=== PATIENT | female | born 1990 | race Caucasian/White ===

== ENCOUNTER 2018-12-03 15:40 | Emergency (ER) | payer OTHER, BC ==
[2018-12-03] MEDS ORDERED: PROMETHAZINE 25 MG/ML VIAL ONE (16:08)
[2018-12-03 16:09] LABS: Absolute Lymphocytes (CBC) 1.5 K/uL (0.7-4.9); Basophils % 0.4 % (0-1.3); Hematocrit 37.8 % (36.0-45.0); MPV 9.1 fL (7.6-11.3); RBC Red Blood Cell Count 4.11 M/uL (3.86-4.86)
[2018-12-03] MEDS ORDERED: NA CHLORIDE 0.9% 1,000 ML ONE (16:09)
[2018-12-03 16:21] LABS: BUN Blood Urea Nitrogen 7 mg/dL (7-18); Bicarbonate 20 mmol/L (21-32); Glucose Level 94 mg/dL (74-106); Potassium 3.8 mmol/L (3.5-5.1); Sodium Level 136 mmol/L (136-145)
--- NOTE | 2018-12-03 17:09 | ER ---
Nurse's Notes [facility] Name: Em Garvin Age: 27 yrs Sex: Female : 1990 Arrival Date: 12/03/2018 Time: 15:41 Bed 6 Private MD: Diagnosis: Vomiting of , unspecified Presentation: 12/03 15:47 Presenting complaint: Patient states: I have been having N/V the whole , I was la1 taking zofran but I ran out about 4 days ago, for the last 2 days I have not been able to keep even water down. Transition of care: patient was not received from another setting of care. Onset of symptoms was December 03, 2018. Risk Assessment: Do you want to hurt yourself or someone else? Patient reports no desire to harm self or others. Initial Sepsis Screen: Does the patient meet any 2 criteria? No. Patient's initial sepsis screen is negative. Does the patient have a suspected source of infection? No. Patient's initial sepsis screen is negative. Care prior to arrival: None. 15:47 Method Of Arrival: Ambulatory la1 15:47 Acuity: MELVIN 3 la1 Triage Assessment: 16:00 General: Appears in no apparent distress. comfortable, Behavior is cooperative, ae4 appropriate for age, anxious. Pain: Denies pain. EENT: No deficits noted. Neuro: No deficits noted. Cardiovascular: No deficits noted. Respiratory: No deficits noted. GI: Reports nausea, vomiting. : No signs and/or symptoms were reported regarding the genitourinary system. Derm: No deficits noted. Musculoskeletal: No deficits noted. 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 - Social history:: Smoking status: Patient/guardian denies using tobacco. - Ebola Screening: : No symptoms or risks identified at this time. Screenin:16 Abuse screen: Denies threats or abuse. Denies injuries from another. Nutritional ae4 screening: No deficits noted. Tuberculosis screening: No symptoms or risk factors identified. Fall Risk None identified. Assessment: 16:00 General: SEE TRIAGE NOTE. Pain: Denies pain. GI: Abdomen is non-distended, Reports ae4 nausea, vomiting. 17:17 Reassessment: PT D/C HOME AMBULATORY WITH FAMILY, DX WITH MORNING SICKNESS. bp Vital Signs: 15:46 BP 123 / 90; Pulse 97; Resp 16; Temp 97.4; Pulse Ox 98% on R/A; Weight 63.5 kg; Height la1 5 ft. 1 in. (154.94 cm); 16:55 BP 101 / 69; Pulse 84; Resp 16; Pulse Ox 100% ; ae4 17:15 BP 105 / 67; Pulse 87; Resp 16; Temp 97.5; Pulse Ox 100% ; bp 15:46 Body Mass Index 26.45 (63.50 kg, 154.94 cm) la1 Vitals: 17:15 Heart Tones 150. bp ED Course: 15:41 Patient arrived in ED. as 15:42 Sarah Hernandez FNP-C is [facility]. kb 15:42 Edgar Bonner MD is Attending Physician. kb 15:47 Arm band placed on left wrist. la1 15:48 Triage completed. la1 15:49 Ras Acosta, RN is Primary Nurse. bp 16:00 Inserted saline lock: 20 gauge in right antecubital area, using aseptic technique. ae4 Blood collected. 16:16 Patient has correct armband on for positive identification. Bed in low position. Call ae4 light in reach. Side rails up X2. Adult w/ patient. 17:16 No provider procedures requiring assistance completed. IV discontinued, intact, bp bleeding controlled, No redness/swelling at site. Pressure dressing applied. Administered Medications: 16:00 Drug: NS 0.9% 1000 ml Route: IV; Rate: 1000 ml; Site: right antecubital; ae4 17:13 Follow up: IV Status: Completed infusion; IV Intake: 1000ml ae4 16:00 Drug: Phenergan 12.5 mg Route: IVP; Site: right antecubital; ae4 16:51 Follow up: Response: No adverse reaction ae4 Intake: 17:13 IV: 1000ml; Total: 1000ml. ae4 Outcome: 17:09 Discharge ordered by . kb 17:17 Discharged to home ambulatory, with family. bp 17:17 Condition: stable 17:17 Discharge instructions given to patient, Instructed on discharge instructions, follow up and referral plans. medication usage, Demonstrated understanding of instructions, follow-up care, medications, Prescriptions given X 1. 17:27 Patient left the ED. bp Signatures: Sarah Hernandez, RESOURCE DEVELOPMENT DIRECTOR-C RESOURCE DEVELOPMENT DIRECTOR-Bere Washington Lee, RN RN la1 Ras Acosta RN RN bp Armen Oquendo RN RN ae4
--- NOTE | 2018-12-03 17:10 | EDPHYS ---
Physician Documentation [facility] Name: Em Garvin Age: 27 yrs Sex: Female : 1990 Arrival Date: 12/03/2018 Time: 15:41 Bed 6 Private MD: ED Physician Edgar Bonner HPI: 12/03 17:05 This 27 yrs old Female presents to ER via Ambulatory with complaints of kb Vomiting - 18 wks preg. 17:07 The patient presents to the emergency department with nausea and vomiting. kb course: care: private OB physician, Leakage of Fluid: none appreciated, Ultrasound: the patient had an ultrasound, Risk/complications: no obvious risks or complications are appreciated. Previous pregnancies: the patient has never been . Associated signs and symptoms: Pertinent positives: nausea, vomiting, Pertinent negatives: abdominal pain, chest pain, diarrhea, dysuria, fever, frequency, ruptured membranes, seizure, shortness of breath, vaginal bleeding, vaginal discharge. The patient has not experienced similar symptoms in the past. The patient has not recently seen a physician. 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 - Social history:: Smoking status: Patient/guardian denies using tobacco. - Ebola Screening: : No symptoms or risks identified at this time. ROS: 17:02 Constitutional: Negative for fever, chills, and weight loss, ENT: Negative for injury, kb pain, and discharge, Neck: Negative for injury, pain, and swelling, Cardiovascular: Negative for chest pain, palpitations, and edema, Respiratory: Negative for shortness of breath, cough, wheezing, and pleuritic chest pain, Back: Negative for injury and pain, MS/Extremity: Negative for injury and deformity, Skin: Negative for injury, rash, and discoloration, Neuro: Negative for headache, weakness, numbness, tingling, and seizure. 17:02 Abdomen/GI: Positive for nausea and vomiting, Negative for abdominal pain. Exam: 17:05 Constitutional: This is a well developed, well nourished patient who is awake, alert, kb and in no acute distress. Head/Face: Normocephalic, atraumatic. ENT: Nares patent. No nasal discharge, no septal abnormalities noted. Tympanic membranes are normal and external auditory canals are clear. Oropharynx with no redness, swelling, or masses, exudates, or evidence of obstruction, uvula midline. Mucous membranes moist. Neck: Trachea midline, no thyromegaly or masses palpated, and no cervical lymphadenopathy. Supple, full range of motion without nuchal rigidity, or vertebral point tenderness. No Meningismus. Chest/axilla: Normal chest wall appearance and motion. Nontender with no deformity. No lesions are appreciated. Cardiovascular: Regular rate and rhythm with a normal S1 and S2. No gallops, murmurs, or rubs. Normal PMI, no JVD. No pulse deficits. Respiratory: Lungs have equal breath sounds bilaterally, clear to auscultation and percussion. No rales, rhonchi or wheezes noted. No increased work of breathing, no retractions or nasal flaring. Back: No spinal tenderness. No costovertebral tenderness. Full range of motion. Skin: Warm, dry with normal turgor. Normal color with no rashes, no lesions, and no evidence of cellulitis. MS/ Extremity: Pulses equal, no cyanosis. Neurovascular intact. Full, normal range of motion. Neuro: Awake and alert, GCS 15, oriented to person, place, time, and situation. Cranial nerves II-XII grossly intact. Motor strength 5/5 in all extremities. Sensory grossly intact. Cerebellar exam normal. Normal gait. 17:05 Abdomen/GI: Inspection: gravid appearance, is noted, Bowel sounds: normal, Palpation: abdomen is soft and non-tender. Vital Signs: 15:46 BP 123 / 90; Pulse 97; Resp 16; Temp 97.4; Pulse Ox 98% on R/A; Weight 63.5 kg; Height la1 5 ft. 1 in. (154.94 cm); 16:55 BP 101 / 69; Pulse 84; Resp 16; Pulse Ox 100% ; ae4 17:15 BP 105 / 67; Pulse 87; Resp 16; Temp 97.5; Pulse Ox 100% ; bp 15:46 Body Mass Index 26.45 (63.50 kg, 154.94 cm) la1 MDM: 15:49 Patient medically screened. kb 17:01 Data reviewed: vital signs, nurses notes. Data interpreted: Pulse oximetry: on room air kb is 100 %. Interpretation: normal. Counseling: I had a detailed discussion with the patient and/or guardian regarding: the historical points, exam findings, and any diagnostic results supporting the discharge/admit diagnosis, lab results, the need for outpatient follow up, a family practitioner, to return to the emergency department if symptoms worsen or persist or if there are any questions or concerns that arise at home. 12/03 15:50 Order name: Basic Metabolic Panel; Complete Time: 16:26 kb 12/03 15:50 Order name: CBC with Diff; Complete Time: 16:13 kb 12/03 15:50 Order name: IV Saline Lock; Complete Time: 16:15 kb 12/03 16:09 Order name: Urine Dipstick--Ancillary (enter results) eb 12/03 15:50 Order name: Labs collected and sent; Complete Time: 16:15 kb 12/03 15:50 Order name: NPO; Complete Time: 16:15 kb 12/03 15:50 Order name: Urine Dipstick-Ancillary (obtain specimen); Complete Time: 16:15 kb 12/03 16:39 Order name: PO challenge; Complete Time: 16:55 kb 12/03 17:04 Order name: FHT's; Complete Time: 17:13 kb Administered Medications: 16:00 Drug: NS 0.9% 1000 ml Route: IV; Rate: 1000 ml; Site: right antecubital; ae4 17:13 Follow up: IV Status: Completed infusion; IV Intake: 1000ml ae4 16:00 Drug: Phenergan 12.5 mg Route: IVP; Site: right antecubital; ae4 16:51 Follow up: Response: No adverse reaction ae4 Disposition: 12/04 07:13 Co-signature as Attending Physician, Edgar Bonner MD. ma2 Disposition: 12/03/18 17:09 Discharged to Home. Impression: Vomiting of , unspecified. - Condition is Stable. - Discharge Instructions: Morning Sickness, [id number]. - Prescriptions for Diclegis 10- 10 mg Oral tablet,delayed release (DR/EC) - take 1 tablet by ORAL route once daily; 10 tablet. - Medication Reconciliation Form, Thank You Letter, Antibiotic Education, Prescription Opioid Use form. - Follow up: Emergency Department; When: As needed; Reason: Worsening of condition. Follow up: Private Physician; When: 2 - 3 days; Reason: Recheck today's complaints, Continuance of care, Re-evaluation by your physician. Signatures: Dispatcher [employer] EDFL Sarah Hernandez, HEBERT-C CANCELLATION CLERK-Justo Vuong RN RN la1 Ras Acosta RN RN bp Edgar Bonner MD MD ma2 Armen Oquendo RN RN ae4 Corrections: (The following items were deleted from the chart) 12/03 17:27 17:09 12/03/2018 17:09 Discharged to Home. Impression: Vomiting of , bp unspecified. Condition is Stable. Forms are Medication Reconciliation Form, Thank You Letter, Antibiotic Education, Prescription Opioid Use. Follow up: Emergency Department; When: As needed; Reason: Worsening of condition. Follow up: Private Physician; When: 2 - 3 days; Reason: Recheck today's complaints, Continuance of care, Re-evaluation by your physician. kb
[2018-12-03 17:36] VITALS: O2SAT 100
[2018-12-03 17:37] VITALS: BP 105/67; TEMP 97.5
[2018-12-03 18:09] LABS: Urine Blood NEGATIVE (NEG); Urine Glucose NEGATIVE (NEG); Urine Protein 1+ (NEG)
== END 2018-12-03 17:27 | disposition home or self-care (01) ==
LOC: ER 15:40
DX: O26.892 Other specified pregnancy related conditions, second trimester (principal); O21.9 Vomiting of pregnancy, unspecified
CPT/HCPCS: 96361; 85025; 80048; 36415; 81003; 96374; 99284; J2550; J7030